=== PATIENT | male | born 1955 | race African-American/Black ===

== ENCOUNTER 2016-07-29 02:49 | Emergency (ER) | payer OTHER ==
[~2016-07-29] VITALS: Ht 180.3 cm; Wt 67.0 kg
[~2016-07-29 02:49] MED LIST: ALBU8.5H IH; BECL8.7A5 PO; CITA10TA68 PO; FAMO20 PO; MONT10TA21 PO; PRED10 PO
[2016-07-29] MEDS ORDERED: ALBUTEROL SULFATE 5 MG/ML 20 ML NEB SOLN [BULK] NEB ONE (03:45)
[2016-07-29] MEDS ORDERED: IPRATROPIUM BROMIDE 0.5 MG/2.5 ML NEB SOLUTION NEB ONE (03:45)
[2016-07-29] MEDS ORDERED: 0.9% SODIUM CHLORIDE 15 ML NEB SOLUTION NEB ONE (04:29)
[2016-07-29 05:35] VITALS: BP 127/76
== END 2016-07-29 06:06 | disposition home or self-care (01) ==
LOC: EMS 02:50
DX: R51 Headache (principal); J44.9 Chronic obstructive pulmonary disease, unspecified; J45.909 Unspecified asthma, uncomplicated; I10 Essential (primary) hypertension; F14.90 Cocaine use, unspecified, uncomplicated; F17.210 Nicotine dependence, cigarettes, uncomplicated
CPT/HCPCS: 94644; 99285; J7611

== ENCOUNTER 2016-10-05 01:01 | Emergency (ER) | payer OTHER ==
[~2016-10-05] VITALS: Ht 180.3 cm; Wt 68.0 kg
[2016-10-05] MEDS ORDERED: KETOROLAC TROMETHAMINE 60 MG/2 ML VIAL IM ONE (02:30)
[2016-10-05] MEDS ORDERED: ACETAMINOPHEN 500 MG TABLET PO ONE (02:30)
[2016-10-05 03:02] VITALS: BP 124/80
== END 2016-10-05 03:05 | disposition home or self-care (01) ==
LOC: EMS 01:03
DX: M54.5 Low back pain (principal); I10 Essential (primary) hypertension; J45.909 Unspecified asthma, uncomplicated; F17.210 Nicotine dependence, cigarettes, uncomplicated; F14.90 Cocaine use, unspecified, uncomplicated
CPT/HCPCS: 71010; 96372; 99283; 99406; J1885

== ENCOUNTER 2016-12-22 05:59 | Emergency (ER) | payer OTHER ==
[~2016-12-22] VITALS: Ht 180.3 cm; Wt 61.4 kg
[2016-12-22] MEDS ORDERED: ALBUTEROL SULFATE HFA 90 MCG/PUFF 8 GM INHALER IH ONE (06:30)
[2016-12-22 06:55] VITALS: BP 126/89
== END 2016-12-22 06:56 | disposition home or self-care (01) ==
LOC: EMS 06:01
DX: J44.9 Chronic obstructive pulmonary disease, unspecified (principal); J45.909 Unspecified asthma, uncomplicated; I10 Essential (primary) hypertension; F14.90 Cocaine use, unspecified, uncomplicated; F17.210 Nicotine dependence, cigarettes, uncomplicated
CPT/HCPCS: 94640; 99283; J3535

== ENCOUNTER 2016-12-27 03:54 | Emergency (ER) | payer OTHER ==
[~2016-12-27] VITALS: Ht 180.3 cm; Wt 61.4 kg
[~2016-12-27 03:54] MED LIST changes: -PRED10 PO
[2016-12-27] MEDS ORDERED: IPRATROPIUM BROMIDE 0.5 MG/2.5 ML NEB SOLUTION NEB ONE (06:45)
[2016-12-27] MEDS ORDERED: ALBUTEROL SULFATE 2.5 MG/0.5 ML NEB SOLUTION NEB ONE (06:45)
[2016-12-27 08:58] VITALS: BP 135/79
[2016-12-27] MEDS ORDERED: ALBUTEROL SULFATE HFA 90 MCG/PUFF 8 GM INHALER IH ONE (09:00)
== END 2016-12-27 09:20 | disposition home or self-care (01) ==
LOC: EMS 03:55
DX: J44.1 Chronic obstructive pulmonary disease with (acute) exacerbation (principal); J45.901 Unspecified asthma with (acute) exacerbation; I10 Essential (primary) hypertension; F17.210 Nicotine dependence, cigarettes, uncomplicated; F14.90 Cocaine use, unspecified, uncomplicated
CPT/HCPCS: 71020; 94640; 99284; 99406; J7613; J3535

== ENCOUNTER 2017-02-24 03:18 | Emergency (ER) | payer OTHER ==
[~2017-02-24] VITALS: Ht 180.3 cm; Wt 63.0 kg
[~2017-02-24 03:18] MED LIST changes: -ALBU8.5H IH; +ALBU8.5H8 IH; -BECL8.7A5 PO; -CITA10TA68 PO; -FAMO20 PO; -MONT10TA21 PO
[2017-02-24] MEDS ORDERED: ALBUTEROL SULFATE HFA 90 MCG/PUFF 8 GM INHALER IH ONE (03:45)
[2017-02-24 05:01] VITALS: BP 125/85
== END 2017-02-24 05:03 | disposition home or self-care (01) ==
LOC: EMS 03:19
DX: J44.9 Chronic obstructive pulmonary disease, unspecified (principal); J45.909 Unspecified asthma, uncomplicated; I10 Essential (primary) hypertension; F14.90 Cocaine use, unspecified, uncomplicated; F17.210 Nicotine dependence, cigarettes, uncomplicated
CPT/HCPCS: 94640; 99283; J3535

== ENCOUNTER 2017-03-12 03:02 | Emergency (ER) | payer OTHER ==
[~2017-03-12] VITALS: Ht 175.3 cm; Wt 73.6 kg
[2017-03-12 05:14] VITALS: BP 141/87
== END 2017-03-12 05:19 | disposition home or self-care (01) ==
LOC: EMS 03:03
DX: F41.9 Anxiety disorder, unspecified (principal); J44.9 Chronic obstructive pulmonary disease, unspecified; I10 Essential (primary) hypertension; F17.210 Nicotine dependence, cigarettes, uncomplicated; K74.60 Unspecified cirrhosis of liver
CPT/HCPCS: 99281; 99406

== ENCOUNTER 2017-04-02 23:05 | Emergency (ER) | payer OTHER ==
[~2017-04-02] VITALS: Ht 180.3 cm; Wt 68.2 kg
[2017-04-03] MEDS ORDERED: ALBUTEROL SULFATE HFA 90 MCG/PUFF 8 GM INHALER IH ONE
[2017-04-03 00:19] VITALS: BP 135/80
== END 2017-04-03 00:27 | disposition home or self-care (01) ==
LOC: EMS 23:07
DX: J44.1 Chronic obstructive pulmonary disease with (acute) exacerbation (principal); J45.901 Unspecified asthma with (acute) exacerbation; I10 Essential (primary) hypertension; F17.210 Nicotine dependence, cigarettes, uncomplicated
CPT/HCPCS: 94640; 99283; 99406; J3535

== ENCOUNTER 2017-05-31 02:46 | Emergency (ER) | payer OTHER ==
[~2017-05-31] VITALS: Ht 180.3 cm; Wt 63.5 kg
[2017-05-31 02:49] VITALS: BP 134/90
== END 2017-05-31 04:16 | disposition left against medical advice (07) ==
LOC: EMS 02:47
DX: Z53.21 Procedure and treatment not carried out due to patient leaving prior to being seen by health care provider (principal)

== ENCOUNTER 2017-06-22 04:02 | Emergency (ER) | payer OTHER ==
[~2017-06-22] VITALS: Ht 180.3 cm; Wt 63.6 kg
[2017-06-22 04:14] VITALS: BP 156/98
== END 2017-06-22 06:18 | disposition left against medical advice (07) ==
LOC: EMS 04:03
DX: F41.9 Anxiety disorder, unspecified (principal); I10 Essential (primary) hypertension; F17.210 Nicotine dependence, cigarettes, uncomplicated; Z53.21 Procedure and treatment not carried out due to patient leaving prior to being seen by health care provider

== ENCOUNTER 2017-07-11 00:31 | Emergency (ER) | payer OTHER ==
[~2017-07-11] VITALS: Ht 177.8 cm; Wt 70.5 kg
[2017-07-11 03:15] VITALS: BP 137/78
[2017-07-11] MEDS ORDERED: PredniSONE 20 MG TABLET PO ONE (04:00)
== END 2017-07-11 04:06 | disposition home or self-care (01) ==
LOC: EMS 00:33
DX: J44.9 Chronic obstructive pulmonary disease, unspecified (principal); J45.909 Unspecified asthma, uncomplicated; I10 Essential (primary) hypertension; F17.210 Nicotine dependence, cigarettes, uncomplicated
CPT/HCPCS: 99283; J7512

== ENCOUNTER 2017-07-18 14:11 | Emergency (ER) | payer OTHER ==
[~2017-07-18] VITALS: Ht 180.3 cm; Wt 68.2 kg
[2017-07-18] MEDS ORDERED: ALBUTEROL SULFATE HFA 90 MCG/PUFF 8 GM INHALER IH ONE (17:00)
[2017-07-18 18:56] VITALS: BP 131/88
== END 2017-07-18 19:04 | disposition home or self-care (01) ==
LOC: EMS 14:12
DX: J45.901 Unspecified asthma with (acute) exacerbation (principal); J44.9 Chronic obstructive pulmonary disease, unspecified; I10 Essential (primary) hypertension; F17.210 Nicotine dependence, cigarettes, uncomplicated; Z71.6 Tobacco abuse counseling
CPT/HCPCS: 94640; 99283; 99406; J3535

== ENCOUNTER 2017-11-09 03:10 | Emergency (ER) | payer OTHER ==
[~2017-11-09] VITALS: Ht 180.3 cm; Wt 65.9 kg
[2017-11-09 03:45] VITALS: BP 131/87
== END 2017-11-09 04:07 | disposition home or self-care (01) ==
LOC: EMS 03:11
DX: L02.01 Cutaneous abscess of face (principal); J45.909 Unspecified asthma, uncomplicated; J44.9 Chronic obstructive pulmonary disease, unspecified; I10 Essential (primary) hypertension; F17.210 Nicotine dependence, cigarettes, uncomplicated
CPT/HCPCS: 10060; 99283

== ENCOUNTER 2017-12-09 06:25 | Emergency (ER) | payer OTHER ==
[~2017-12-09] VITALS: Ht 180.3 cm; Wt 60.0 kg
[2017-12-09] MEDS ORDERED: ALBUTEROL SULFATE 2.5 MG/0.5 ML NEB SOLUTION NEB ONE (08:30)
[2017-12-09] MEDS ORDERED: ALBUTEROL SULFATE HFA 90 MCG/PUFF 8 GM INHALER IH ONE (08:30)
[2017-12-09] MEDS ORDERED: IPRATROPIUM BROMIDE 0.5 MG/2.5 ML NEB SOLUTION NEB ONE (08:30)
[2017-12-09 09:51] VITALS: BP 146/96
== END 2017-12-09 09:54 | disposition home or self-care (01) ==
LOC: EMS 06:27
DX: J44.9 Chronic obstructive pulmonary disease, unspecified (principal); I10 Essential (primary) hypertension; J45.909 Unspecified asthma, uncomplicated; F17.210 Nicotine dependence, cigarettes, uncomplicated; Z76.0 Encounter for issue of repeat prescription
CPT/HCPCS: 94640; 99284; 99406; J7613; J3535

== ENCOUNTER 2018-03-01 04:45 | Emergency (ER) | payer OTHER ==
[~2018-03-01] VITALS: Ht 180.3 cm; Wt 63.6 kg
[2018-03-01] MEDS ORDERED: FAMO20 PO (04:56)
[2018-03-01] MEDS ORDERED: MONT10TA21 PO (04:56)
[2018-03-01] MEDS ORDERED: PRED10 PO (04:56)
[2018-03-01] MEDS ORDERED: NAPR-1024 PO (04:56)
[2018-03-01] MEDS ORDERED: 0.9% SODIUM CHLORIDE 5 ML NEB SOLUTION NEB ONE (05:36)
[2018-03-01] MEDS: IPRATROPIUM BROMIDE 0.5 MG/2.5 ML NEB SOLUTION NEB ONE (05:39)
[2018-03-01] MEDS: ALBUTEROL SULFATE 5 MG/ML 20 ML NEB SOLN [BULK] NEB ONE (05:39)
[2018-03-01 07:01] VITALS: BP 138/91
[2018-03-01] MEDS: ALBUTEROL SULFATE HFA 90 MCG/PUFF 8 GM INHALER IH ONE (07:10)
== END 2018-03-01 07:15 | disposition home or self-care (01) ==
LOC: EMS 04:46
DX: J44.9 Chronic obstructive pulmonary disease, unspecified (principal); I10 Essential (primary) hypertension; F17.210 Nicotine dependence, cigarettes, uncomplicated
CPT/HCPCS: 94644; 99285; 99406; J7611; J3535

== ENCOUNTER 2018-03-16 06:21 | Emergency (ER) | payer OTHER ==
[~2018-03-16] VITALS: Ht 180.3 cm; Wt 68.2 kg
[~2018-03-16 06:21] MED LIST changes: -ALBU8.5H8 IH; +FAMO20 PO; +MONT10TA21 PO; +NAPR-1024 PO; +PRED10 PO
[2018-03-16] MEDS ORDERED: ALBUTEROL SULFATE 2.5 MG/0.5 ML NEB SOLUTION NEB ONE (06:45)
[2018-03-16] MEDS ORDERED: IPRATROPIUM BROMIDE 0.5 MG/2.5 ML NEB SOLUTION NEB ONE (06:45)
[2018-03-16] MEDS ORDERED: 0.9% SODIUM CHLORIDE 5 ML NEB SOLUTION NEB ONE (06:59)
[2018-03-16 07:51] VITALS: BP 130/86
[2018-03-16] MEDS ORDERED: ALBUTEROL SULFATE HFA 90 MCG/PUFF 8 GM INHALER IH ONE (08:00)
[2018-04-16] MEDS ORDERED: PredniSONE 20 MG TABLET PO ONE (02:45)
[2018-04-16] MEDS ORDERED: SODIUM CHLORIDE 0.9% 100 ML ONE (04:22)
[2018-04-16] MEDS ORDERED: IOVERSOL 350 MG/ML 100 ML VIAL ONE (04:22)
== END 2018-03-16 08:03 | disposition home or self-care (01) ==
LOC: EMS 06:21
DX: J44.9 Chronic obstructive pulmonary disease, unspecified (principal); J45.909 Unspecified asthma, uncomplicated; I10 Essential (primary) hypertension; F17.210 Nicotine dependence, cigarettes, uncomplicated
CPT/HCPCS: 94640; 99406; J3535

== ENCOUNTER 2018-04-16 02:28 | Emergency (ER) | payer OTHER ==
[~2018-04-16] VITALS: Ht 180.3 cm; Wt 63.6 kg
[2018-04-16] MEDS: PredniSONE 20 MG TABLET PO ONE (02:51)
[2018-04-16 03:26] LABS: BASOPHILS % (AUTO) 0.3 % (0.0-2.0); EOSINOPHILS % (AUTO) 1.3 % (1.0-6.0); HEMOGLOBIN 12.9 g/dL (13.5-17.5); LYMPHOCYTES # (AUTO) 1.3 K/uL (1.0-4.8); LYMPHOCYTES % (AUTO) 14.5 % (22.0-44.0); MEAN CORPUSCULAR HEMOGLOBIN 27.2 pg (26.0-34.0); MEAN CORPUSCULAR HGB CONC 32.2 G/dL (31.0-37.0); MEAN CORPUSCULAR VOLUME 85 fL (80-100); MONOCYTES # (AUTO) 0.9 K/uL (0.1-1.0); MONOCYTES % (AUTO) 10.3 % (2.0-9.0); NEUTROPHILS # (AUTO) 6.4 K/uL (1.8-7.7); NEUTROPHILS % (AUTO) 73.6 % (40.0-70.0); PLATELET COUNT (AUTO) 228 K/uL (150-450); RED BLOOD CELL COUNT(AUTO) 4.73 MIL/uL (4.50-5.90); RED CELL DISTRIBUTION WIDTH 15.6 % (11.5-14.5)
[2018-04-16 03:34] LABS: ANION GAP 2 mmol/L (8-16); CALCIUM, TOTAL 8.3 mg/dL (8.8-10.5); CARBON DIOXIDE 35 mmol/L (22-29); CHLORIDE 105 mmol/L (98-107); CREATININE 0.93 mg/dL (0.60-1.30); GLOMERULAR FILTR. RATE CALC > 60 mL/min (>60); GLUCOSE,RANDOM 105 mg/dL (70-110); POTASSIUM 4.2 mmol/L (3.5-5.1); SODIUM SERUM 142 mmol/L (136-145); UREA NITROGEN, BLOOD 20 mg/dL (7-18)
[2018-04-16 03:40] LABS: ALANINE AMINOTRANSFERASE 19 U/L (12-78); ALBUMIN 3.5 g/dL (3.4-5.0); ALKALINE PHOSPHATASE 70 U/L (46-116); ASPARTATE AMINOTRANSFERASE 15 U/L (15-37); BILIRUBIN,TOTAL 0.2 mg/dL (0.1-1.0); TOTAL PROTEIN, SERUM 6.8 g/dL (6.4-8.2)
[2018-04-16 03:45] LABS: B-TYPE NATRIURETIC PEPTIDE 9 pg/mL (0-100)
[2018-04-16] MEDS ORDERED: 0.9% SODIUM CHLORIDE 5 ML NEB SOLUTION NEB ONE (03:53)
[2018-04-16] MEDS: IPRATROPIUM BROMIDE 0.5 MG/2.5 ML NEB SOLUTION NEB ONE (04:00)
[2018-04-16] MEDS: ALBUTEROL SULFATE 2.5 MG/0.5 ML NEB SOLUTION NEB ONE (04:01)
[2018-04-16] MEDS: ALBUTEROL SULFATE HFA 90 MCG/PUFF 8 GM INHALER IH ONE (05:52)
[2018-04-16 06:00] VITALS: BP 141/83
== END 2018-04-16 06:00 | disposition home or self-care (01) ==
LOC: EMS 02:29
DX: J44.1 Chronic obstructive pulmonary disease with (acute) exacerbation (principal); I10 Essential (primary) hypertension; F17.210 Nicotine dependence, cigarettes, uncomplicated
CPT/HCPCS: 36415; 71045; 71275; 80053; 83880; 85025; 94640; 99284; 99406; J7512; J3535

== ENCOUNTER 2018-04-25 03:41 | Emergency (ER) | payer OTHER ==
[~2018-04-25] VITALS: Ht 177.8 cm; Wt 59.1 kg
[2018-04-25 06:13] VITALS: BP 136/88
[2018-04-25] MEDS ORDERED: ALBUTEROL SULFATE HFA 90 MCG/PUFF 8 GM INHALER IH ONE (06:30)
[2018-04-25] MEDS ORDERED: ALBUTEROL SULFATE 2.5 MG/0.5 ML NEB SOLUTION NEB ONE (06:30)
[2018-04-25] MEDS ORDERED: IPRATROPIUM BROMIDE 0.5 MG/2.5 ML NEB SOLUTION NEB ONE (06:30)
== END 2018-04-25 07:05 | disposition home or self-care (01) ==
LOC: EMS 03:43
DX: J45.901 Unspecified asthma with (acute) exacerbation (principal); I10 Essential (primary) hypertension; F17.210 Nicotine dependence, cigarettes, uncomplicated; Z79.899 Other long term (current) drug therapy
CPT/HCPCS: 94640; J3535

== ENCOUNTER 2018-05-09 12:07 | Emergency (ER) | payer OTHER ==
[~2018-05-09] VITALS: Ht 177.8 cm; Wt 70.5 kg
[2018-05-09] MEDS ORDERED: ALBUTEROL SULFATE 2.5 MG/0.5 ML NEB SOLUTION NEB ONE (12:15)
[2018-05-09] MEDS ORDERED: IPRATROPIUM BROMIDE 0.5 MG/2.5 ML NEB SOLUTION NEB ONE ×2 (12:15→13:00)
[2018-05-09] MEDS ORDERED: ALBUTEROL SULFATE 5 MG/ML 20 ML NEB SOLN [BULK] NEB ONE (13:00)
[2018-05-09] MEDS ORDERED: 0.9% SODIUM CHLORIDE 10 ML SYRINGE IVP PRN (13:45)
[2018-05-09 15:58] LABS: SODIUM SERUM 140 mmol/L (136-145)
[2018-05-09 15:59] LABS: ALANINE AMINOTRANSFERASE 26 U/L (12-78); ALKALINE PHOSPHATASE 64 U/L (46-116); ANION GAP 3 mmol/L (8-16); ASPARTATE AMINOTRANSFERASE 13 U/L (15-37); BILIRUBIN,TOTAL 0.4 mg/dL (0.1-1.0); CALCIUM, TOTAL 8.6 mg/dL (8.8-10.5); CARBON DIOXIDE 35 mmol/L (22-29); CHLORIDE 102 mmol/L (98-107); CREATINE KINASE, TOTAL ONLY 177 U/L (39-308); CREATININE 0.93 mg/dL (0.60-1.30); GLOMERULAR FILTR. RATE CALC > 60 mL/min (>60); GLUCOSE,RANDOM 91 mg/dL (70-110); LACTIC ACID 1.1 mmol/L (0.4-2.0); POTASSIUM 4.7 mmol/L (3.5-5.1); UREA NITROGEN, BLOOD 15 mg/dL (7-18)
[2018-05-09 16:00] LABS: ALBUMIN 3.8 g/dL (3.4-5.0); B-TYPE NATRIURETIC PEPTIDE 25 pg/mL (0-100); TOTAL PROTEIN, SERUM 7.3 g/dL (6.4-8.2)
[2018-05-09] MEDS ORDERED: AZITHROMYCIN 500 MG/NS 250 ML IV ONE (16:00)
[2018-05-09] MEDS ORDERED: CefTRIAXone 1 GM/DEXTROSE 50 ML IV ONE (16:00)
[2018-05-09 17:24] LABS: INFLUENZA TYPE A NEGATIVE FOR TYPE A (NEGATIVE); INFLUENZA TYPE B NEGATIVE FOR TYPE B (NEGATIVE)
[2018-05-09 17:48] LABS: HEMOGLOBIN 13.6 g/dL (13.5-17.5); RED BLOOD CELL COUNT(AUTO) 4.98 MIL/uL (4.50-5.90)
[2018-05-09 17:49] LABS: BASOPHILS % (AUTO) 0.1 % (0.0-2.0); EOSINOPHILS % (AUTO) 0.4 % (1.0-6.0); HEMATOCRIT 42.4 % (41-53); LYMPHOCYTES # (AUTO) 0.5 K/uL (1.0-4.8); LYMPHOCYTES % (AUTO) 6.2 % (22.0-44.0); MEAN CORPUSCULAR HEMOGLOBIN 27.4 pg (26.0-34.0); MEAN CORPUSCULAR HGB CONC 32.2 G/dL (31.0-37.0); MEAN CORPUSCULAR VOLUME 85 fL (80-100); MONOCYTES # (AUTO) 0.3 K/uL (0.1-1.0); MONOCYTES % (AUTO) 3.6 % (2.0-9.0); NEUTROPHILS # (AUTO) 7.2 K/uL (1.8-7.7); NEUTROPHILS % (AUTO) 89.7 % (40.0-70.0); PLATELET COUNT (AUTO) 222 K/uL (150-450); RED CELL DISTRIBUTION WIDTH 16.1 % (11.5-14.5)
[2018-05-09 17:51] VITALS: BP 98/78
== END 2018-05-09 18:07 | disposition home or self-care (01) ==
LOC: EMS 12:07
DX: J44.9 Chronic obstructive pulmonary disease, unspecified (principal); J18.9 Pneumonia, unspecified organism; I10 Essential (primary) hypertension; F17.210 Nicotine dependence, cigarettes, uncomplicated
CPT/HCPCS: 36415; 71045; 80053; 82550; 83605; 83880; 84484; 85025; 87040; 87804; 93005; 94640; 94644; 96365; 96368; 99285; J0456; J0696

== ENCOUNTER 2018-05-12 01:23 | Emergency (ER) | payer OTHER ==
[~2018-05-12] VITALS: Ht 180.3 cm; Wt 68.4 kg
[2018-05-12 01:35] VITALS: BP 156/100
[2018-05-12] MEDS ORDERED: BUPR100SR PO (01:42)
[2018-05-12] MEDS ORDERED: DOXY50 PO (01:44)
== END 2018-05-12 03:00 | disposition home or self-care (01) ==
LOC: EMS 01:24
DX: J44.1 Chronic obstructive pulmonary disease with (acute) exacerbation (principal); J98.01 Acute bronchospasm; I10 Essential (primary) hypertension; F17.210 Nicotine dependence, cigarettes, uncomplicated

== ENCOUNTER 2019-05-26 14:05 | Emergency (ER) | payer OTHER ==
[~2019-05-26] VITALS: Ht 180.3 cm; Wt 81.8 kg
[~2019-05-26 14:05] MED LIST changes: +BUPR100SR PO; +DOXY50 PO
[2019-05-26] MEDS ORDERED: IPRATROPIUM BROMIDE 0.5 MG/2.5 ML NEB SOLUTION NEB ONE (22:30)
[2019-05-26] MEDS ORDERED: ALBUTEROL SULFATE 2.5 MG/0.5 ML NEB SOLUTION NEB ONE (22:30)
[2019-05-26] MEDS ORDERED: AZITHROMYCIN 250 MG TABLET PO ONE (22:30)
[2019-05-26] MEDS ORDERED: PredniSONE 20 MG TABLET PO ONE (22:30)
[2019-05-26 22:57] LABS: BASOPHILS % (AUTO) 0.6 % (0.0-2.0); EOSINOPHILS % (AUTO) 2.9 % (1.0-6.0); HEMATOCRIT 39.7 % (41-53); LYMPHOCYTES # (AUTO) 0.7 K/uL (1.0-4.8); LYMPHOCYTES % (AUTO) 13.8 % (22.0-44.0); MEAN CORPUSCULAR HEMOGLOBIN 27.2 pg (26.0-34.0); MEAN CORPUSCULAR HGB CONC 32.8 G/dL (31.0-37.0); MEAN CORPUSCULAR VOLUME 83 fL (80-100); MONOCYTES # (AUTO) 0.7 K/uL (0.1-1.0); MONOCYTES % (AUTO) 12.6 % (2.0-9.0); NEUTROPHILS # (AUTO) 3.8 K/uL (1.8-7.7); NEUTROPHILS % (AUTO) 70.1 % (40.0-70.0); PLATELET COUNT (AUTO) 260 K/uL (150-450); RED BLOOD CELL COUNT(AUTO) 4.79 MIL/uL (4.50-5.90); RED CELL DISTRIBUTION WIDTH 14.8 % (11.5-14.5)
[2019-05-26 23:10] LABS: ANION GAP 4 mmol/L (8-16); CALCIUM, TOTAL 8.5 mg/dL (8.8-10.5); CARBON DIOXIDE 32 mmol/L (22-29); CHLORIDE 105 mmol/L (98-107); CREATININE 0.85 mg/dL (0.60-1.30); GLOMERULAR FILTR. RATE CALC > 60 mL/min (>60); GLUCOSE,RANDOM 79 mg/dL (70-110); POTASSIUM 4.3 mmol/L (3.5-5.1); SODIUM SERUM 141 mmol/L (136-145); UREA NITROGEN, BLOOD 11 mg/dL (7-18)
[2019-05-26 23:16] LABS: ALANINE AMINOTRANSFERASE 19 U/L (12-78); ALBUMIN 3.8 g/dL (3.4-5.0); ALKALINE PHOSPHATASE 69 U/L (46-116); ASPARTATE AMINOTRANSFERASE 19 U/L (15-37); BILIRUBIN,TOTAL 0.3 mg/dL (0.1-1.0)
[2019-05-26 23:54] VITALS: BP 135/96
== END 2019-05-27 00:23 | disposition home or self-care (01) ==
LOC: EMS 14:05
DX: J44.9 Chronic obstructive pulmonary disease, unspecified (principal); J18.9 Pneumonia, unspecified organism; I10 Essential (primary) hypertension; F17.210 Nicotine dependence, cigarettes, uncomplicated; Z79.899 Other long term (current) drug therapy
CPT/HCPCS: 36415; 71046; 80053; 85025; 94640; 99284; J7512

== ENCOUNTER 2019-07-01 06:05 | Day surgery (SDC) | payer OTHER ==
[~2019-07-01] VITALS: Ht 180.3 cm; Wt 63.6 kg
[~2019-07-01 06:05] MED LIST changes: +SODIUM CHLORIDE 0.9% 1,000 ML ONE
[2019-07-01] MEDS ORDERED: LIDOCAINE 2% 30 ML JELLY TP ONE (06:06)
[2019-07-01] MEDS ORDERED: ALBUTEROL SULFATE 2.5 MG/0.5 ML NEB SOLUTION NEB ONE (06:06)
[2019-07-01] MEDS ORDERED: LIDOCAINE 4% 50 ML SOLUTION TP ONE (06:06)
[2019-07-01] MEDS ORDERED: BENZOCAINE 20% 50 MCG/SPRAY 57 GM TP ONE (06:06)
[2019-07-01] MEDS ORDERED: SODIUM CHLORIDE 0.9% 1,000 ML IV ONE (06:30)
[2019-07-01] MEDS ORDERED: MIDAZOLAM HCL 2 MG/2 ML VIAL ONE (07:21)
[2019-07-01] MEDS ORDERED: FentaNYL CITRATE-PF 100 MCG/2 ML VIAL ONE (07:21)
[2019-07-01] MEDS ORDERED: MethylPREDNISolone SOD SUCC 125 MG/2 ML VIAL IVP ONE (08:45)
[2019-07-01] MEDS ORDERED: MethylPREDNISolone SOD SUCC 125 MG/2 ML VIAL ONE (08:54)
[2019-07-01] MEDS ORDERED: OXYGEN THERAPY IH SCH (20:00)
== END 2019-07-01 10:10 | disposition home or self-care (01) ==
LOC: SURGERY 06:05
PROVIDERS: ATTEND Internal Medicine Critical Care Medicine
DX: R05 Cough (principal); R91.1 Solitary pulmonary nodule; J34.89 Other specified disorders of nose and nasal sinuses; J98.8 Other specified respiratory disorders; J38.4 Edema of larynx; B37.0 Candidal stomatitis; J44.9 Chronic obstructive pulmonary disease, unspecified; F17.210 Nicotine dependence, cigarettes, uncomplicated; Z79.899 Other long term (current) drug therapy
CPT/HCPCS: 31623; 31624; 71045; 87070; 87101; 87206; 87220; J2250; J2930; J3010; J7030; 87015; 87205; 88108; 88312

== ENCOUNTER 2019-08-01 02:17 | Emergency (ER) | payer OTHER ==
[~2019-08-01] VITALS: Ht 180.3 cm; Wt 63.6 kg
[~2019-08-01 02:17] MED LIST changes: -SODIUM CHLORIDE 0.9% 1,000 ML ONE
[2019-08-01 03:32] LABS: BASOPHILS % (AUTO) 0.5 % (0.0-2.0); EOSINOPHILS % (AUTO) 2.2 % (1.0-6.0); HEMATOCRIT 38.8 % (41-53); HEMOGLOBIN 12.6 g/dL (13.5-17.5); LYMPHOCYTES # (AUTO) 0.8 K/uL (1.0-4.8); LYMPHOCYTES % (AUTO) 13.1 % (22.0-44.0); MEAN CORPUSCULAR HEMOGLOBIN 26.7 pg (26.0-34.0); MEAN CORPUSCULAR HGB CONC 32.4 G/dL (31.0-37.0); MEAN CORPUSCULAR VOLUME 83 fL (80-100); MONOCYTES # (AUTO) 0.7 K/uL (0.1-1.0); MONOCYTES % (AUTO) 12.7 % (2.0-9.0); NEUTROPHILS # (AUTO) 4.1 K/uL (1.8-7.7); NEUTROPHILS % (AUTO) 71.5 % (40.0-70.0); PLATELET COUNT (AUTO) 235 K/uL (150-450); RED CELL DISTRIBUTION WIDTH 15.2 % (11.5-14.5)
[2019-08-01 03:44] LABS: ANION GAP 7 mmol/L (8-16); CALCIUM, TOTAL 9.2 mg/dL (8.8-10.5); CARBON DIOXIDE 30 mmol/L (22-29); CHLORIDE 103 mmol/L (98-107); CREATININE 0.77 mg/dL (0.60-1.30); GLOMERULAR FILTR. RATE CALC > 60 mL/min (>60); GLUCOSE,RANDOM 108 mg/dL (70-110); POTASSIUM 3.6 mmol/L (3.5-5.1); SODIUM SERUM 140 mmol/L (136-145); UREA NITROGEN, BLOOD 11 mg/dL (7-18)
[2019-08-01 03:50] LABS: ALANINE AMINOTRANSFERASE 18 U/L (12-78); ALBUMIN 3.7 g/dL (3.4-5.0); ALKALINE PHOSPHATASE 70 U/L (46-116); ASPARTATE AMINOTRANSFERASE 13 U/L (15-37); BILIRUBIN,TOTAL 0.4 mg/dL (0.1-1.0); TOTAL PROTEIN, SERUM 7.2 g/dL (6.4-8.2)
[2019-08-01 03:55] LABS: B-TYPE NATRIURETIC PEPTIDE 15 pg/mL (0-100)
[2019-08-01] MEDS ORDERED: ALBUTEROL SULFATE HFA 90 MCG/PUFF 8 GM INHALER IH ONE (07:15)
[2019-08-01 08:21] VITALS: BP 127/83
== END 2019-08-01 08:27 | disposition home or self-care (01) ==
LOC: EMS 02:18
DX: J44.9 Chronic obstructive pulmonary disease, unspecified (principal); I10 Essential (primary) hypertension; F17.210 Nicotine dependence, cigarettes, uncomplicated
CPT/HCPCS: 93005; 94640; J3535

== ENCOUNTER 2019-08-11 02:00 | Emergency (ER) | payer OTHER ==
[~2019-08-11] VITALS: Ht 180.3 cm; Wt 63.6 kg
[2019-08-11 03:39] LABS: BASOPHILS % (AUTO) 0.5 % (0.0-2.0); HEMATOCRIT 40.1 % (41-53); HEMOGLOBIN 12.8 g/dL (13.5-17.5); LYMPHOCYTES # (AUTO) 0.6 K/uL (1.0-4.8); LYMPHOCYTES % (AUTO) 10.8 % (22.0-44.0); MEAN CORPUSCULAR HEMOGLOBIN 26.4 pg (26.0-34.0); MEAN CORPUSCULAR HGB CONC 31.9 G/dL (31.0-37.0); MEAN CORPUSCULAR VOLUME 83 fL (80-100); MONOCYTES # (AUTO) 0.5 K/uL (0.1-1.0); MONOCYTES % (AUTO) 9.2 % (2.0-9.0); NEUTROPHILS # (AUTO) 4.5 K/uL (1.8-7.7); NEUTROPHILS % (AUTO) 77.5 % (40.0-70.0); PLATELET COUNT (AUTO) 273 K/uL (150-450); RED BLOOD CELL COUNT(AUTO) 4.84 MIL/uL (4.50-5.90); RED CELL DISTRIBUTION WIDTH 15.1 % (11.5-14.5)
[2019-08-11 03:49] LABS: ANION GAP 9 mmol/L (8-16); CALCIUM, TOTAL 8.9 mg/dL (8.8-10.5); CARBON DIOXIDE 28 mmol/L (22-29); CHLORIDE 105 mmol/L (98-107); CREATININE 0.87 mg/dL (0.60-1.30); GLOMERULAR FILTR. RATE CALC > 60 mL/min (>60); GLUCOSE,RANDOM 88 mg/dL (70-110); POTASSIUM 4.1 mmol/L (3.5-5.1); SODIUM SERUM 142 mmol/L (136-145); UREA NITROGEN, BLOOD 13 mg/dL (7-18)
[2019-08-11 03:56] LABS: ALANINE AMINOTRANSFERASE 22 U/L (12-78); ALBUMIN 3.7 g/dL (3.4-5.0); ALKALINE PHOSPHATASE 69 U/L (46-116); ASPARTATE AMINOTRANSFERASE 18 U/L (15-37); BILIRUBIN,TOTAL 0.2 mg/dL (0.1-1.0); TOTAL PROTEIN, SERUM 7.2 g/dL (6.4-8.2)
[2019-08-11 04:06] LABS: B-TYPE NATRIURETIC PEPTIDE 24 pg/mL (0-100)
[2019-08-11 06:37] VITALS: BP 134/85
== END 2019-08-11 06:41 | disposition home or self-care (01) ==
LOC: EMS 02:01
DX: J44.1 Chronic obstructive pulmonary disease with (acute) exacerbation (principal); F10.10 Alcohol abuse, uncomplicated; I10 Essential (primary) hypertension; K74.60 Unspecified cirrhosis of liver; F17.210 Nicotine dependence, cigarettes, uncomplicated; Z79.899 Other long term (current) drug therapy; Z98.890 Other specified postprocedural states
CPT/HCPCS: 93005; 99406

== ENCOUNTER 2019-08-12 14:54 | Emergency (ER) | payer OTHER ==
[~2019-08-12] VITALS: Ht 180.3 cm; Wt 63.6 kg
[2019-08-12] MEDS ORDERED: ALBUTEROL SULFATE 5 MG/ML 20 ML NEB SOLN [BULK] NEB ONE (16:30)
[2019-08-12] MEDS ORDERED: IPRATROPIUM BROMIDE 0.5 MG/2.5 ML NEB SOLUTION NEB ONE (16:30)
[2019-08-12] MEDS ORDERED: ALBUTEROL SULFATE HFA 90 MCG/PUFF 8 GM INHALER IH ONE (17:15)
[2019-08-12 18:14] VITALS: BP 131/81
[2019-08-15] MEDS ORDERED: MethylPREDNISolone SOD SUCC 125 MG/2 ML VIAL IVP ONE (01:00)
== END 2019-08-12 18:20 | disposition home or self-care (01) ==
LOC: EMS 14:59
DX: J44.1 Chronic obstructive pulmonary disease with (acute) exacerbation (principal); I10 Essential (primary) hypertension; K74.60 Unspecified cirrhosis of liver; F17.210 Nicotine dependence, cigarettes, uncomplicated; Z79.899 Other long term (current) drug therapy
CPT/HCPCS: 94640; 94644; J3535

== ENCOUNTER 2019-08-15 00:07 | Emergency (ER) | payer OTHER ==
[~2019-08-15] VITALS: Ht 180.3 cm; Wt 63.6 kg
[~2019-08-15 00:07] MED LIST changes: -DOXY50 PO
[2019-08-15] MEDS ORDERED: ALBU8HFA IH (00:36)
[2019-08-15] MEDS ORDERED: PredniSONE 20 MG TABLET PO ONE (02:00)
[2019-08-15 02:35] VITALS: BP 154/85
[2019-08-15 03:09] LABS: AMPHET/METH SCREEN,URINE NEGATIVE (NEGATIVE); BARBITURATE SCREEN, URINE NEGATIVE (NEGATIVE); BENZODIAZEPINES SCREEN,URINE NEGATIVE (NEGATIVE); CANNABINOID SCREEN,URINE NEGATIVE (NEGATIVE); COCAINE SCREEN,URINE NEGATIVE (NEGATIVE); METHADONE SCREEN, URINE NEGATIVE (NEGATIVE); OPIATE SCREEN,URINE NEGATIVE (NEGATIVE)
[2019-08-15 03:10] LABS: PHENCYCLIDINE SCREEN,URINE NEGATIVE (NEGATIVE)
[2019-08-15 03:15] LABS: BASOPHILS % (AUTO) 0.5 % (0.0-2.0); HEMATOCRIT 38.3 % (41-53); HEMOGLOBIN 12.4 g/dL (13.5-17.5); LYMPHOCYTES % (AUTO) 15.3 % (22.0-44.0); MEAN CORPUSCULAR HEMOGLOBIN 26.6 pg (26.0-34.0); MEAN CORPUSCULAR HGB CONC 32.2 G/dL (31.0-37.0); MEAN CORPUSCULAR VOLUME 82 fL (80-100); MONOCYTES % (AUTO) 15.1 % (2.0-9.0); NEUTROPHILS # (AUTO) 3.8 K/uL (1.8-7.7); NEUTROPHILS % (AUTO) 66.1 % (40.0-70.0); PLATELET COUNT (AUTO) 250 K/uL (150-450); RED BLOOD CELL COUNT(AUTO) 4.65 MIL/uL (4.50-5.90); RED CELL DISTRIBUTION WIDTH 15.4 % (11.5-14.5)
[2019-08-15 03:16] LABS: LYMPHOCYTES # (AUTO) 0.9 K/uL (1.0-4.8); MONOCYTES # (AUTO) 0.9 K/uL (0.1-1.0)
[2019-08-15 03:18] LABS: ANION GAP 5 mmol/L (8-16); CARBON DIOXIDE 32 mmol/L (22-29); CHLORIDE 104 mmol/L (98-107); GLUCOSE,RANDOM 98 mg/dL (70-110); POTASSIUM 4.2 mmol/L (3.5-5.1); SODIUM SERUM 141 mmol/L (136-145)
[2019-08-15 03:20] LABS: CALCIUM, TOTAL 8.9 mg/dL (8.8-10.5); CREATININE 0.89 mg/dL (0.60-1.30); GLOMERULAR FILTR. RATE CALC > 60 mL/min (>60); UREA NITROGEN, BLOOD 13 mg/dL (7-18)
[2019-08-15 03:21] LABS: CREATINE KINASE, TOTAL ONLY 203 U/L (39-308)
[2019-08-15 03:33] LABS: ALANINE AMINOTRANSFERASE 26 U/L (12-78); ALBUMIN 3.7 g/dL (3.4-5.0); ALKALINE PHOSPHATASE 85 U/L (46-116); ASPARTATE AMINOTRANSFERASE 17 U/L (15-37); BILIRUBIN,TOTAL 0.3 mg/dL (0.1-1.0); TOTAL PROTEIN, SERUM 7.1 g/dL (6.4-8.2)
[2019-08-15] MEDS ORDERED: ALBUTEROL SULFATE HFA 90 MCG/PUFF 8 GM INHALER IH ONE (04:40)
== END 2019-08-15 04:09 | disposition home or self-care (01) ==
LOC: EMS 00:08
DX: J44.9 Chronic obstructive pulmonary disease, unspecified (principal); I10 Essential (primary) hypertension; F17.290 Nicotine dependence, other tobacco product, uncomplicated; Z79.899 Other long term (current) drug therapy
CPT/HCPCS: 36415; 80053; 80307; 82550; 84484; 85025; 93005; 99284; 99406; J7512; J3535

== ENCOUNTER 2019-09-17 03:20 | Emergency (ER) | payer OTHER ==
[~2019-09-17] VITALS: Ht 180.3 cm; Wt 63.6 kg
[~2019-09-17 03:20] MED LIST changes: +ALBU8HFA IH
[2019-09-17] MEDS ORDERED: ALBUTEROL SULFATE HFA 90 MCG/PUFF 8 GM INHALER IH ONE (06:00)
[2019-09-17] MEDS ORDERED: IPRATROPIUM BROMIDE HFA 17 MCG/PUFF 12.9 GM INHALER IH ONE (06:00)
[2019-09-17 06:34] VITALS: BP 135/88
== END 2019-09-17 06:46 | disposition home or self-care (01) ==
LOC: EMS 03:20
DX: R06.02 Shortness of breath (principal); J44.9 Chronic obstructive pulmonary disease, unspecified; F17.210 Nicotine dependence, cigarettes, uncomplicated; I10 Essential (primary) hypertension; Z79.899 Other long term (current) drug therapy
CPT/HCPCS: 94640; J3535

== ENCOUNTER 2019-12-02 09:27 | Emergency (ER) | payer OTHER ==
[~2019-12-02] VITALS: Ht 180.3 cm; Wt 64.1 kg
[2019-12-02] MEDS ORDERED: PredniSONE 20 MG TABLET PO ONE (11:00)
[2019-12-02] MEDS ORDERED: IPRATROPIUM BROMIDE 0.5 MG/2.5 ML NEB SOLUTION NEB ONE (11:00)
[2019-12-02] MEDS ORDERED: ALBUTEROL SULFATE 2.5 MG/0.5 ML NEB SOLUTION NEB ONE (11:00)
[2019-12-02] MEDS ORDERED: ALBUTEROL SULFATE HFA 90 MCG/PUFF 8 GM INHALER IH ONE (11:15)
[2019-12-02 11:30] LABS: BASOPHILS % (AUTO) 0.7 % (0.0-2.0); EOSINOPHILS % (AUTO) 4.7 % (1.0-6.0); HEMOGLOBIN 13.1 g/dL (13.5-17.5); LYMPHOCYTES # (AUTO) 0.7 K/uL (1.0-4.8); LYMPHOCYTES % (AUTO) 14.8 % (22.0-44.0); MEAN CORPUSCULAR HEMOGLOBIN 26.9 pg (26.0-34.0); MEAN CORPUSCULAR HGB CONC 32.6 G/dL (31.0-37.0); MEAN CORPUSCULAR VOLUME 82 fL (80-100); MONOCYTES # (AUTO) 0.8 K/uL (0.1-1.0); MONOCYTES % (AUTO) 16.9 % (2.0-9.0); NEUTROPHILS # (AUTO) 3.1 K/uL (1.8-7.7); NEUTROPHILS % (AUTO) 62.9 % (40.0-70.0); PLATELET COUNT (AUTO) 247 K/uL (150-450); RED BLOOD CELL COUNT(AUTO) 4.86 MIL/uL (4.50-5.90)
[2019-12-02 12:21] LABS: APPEARANCE,URINE CLEAR (CLEAR); BILIRUBIN,URINE NEGATIVE (NEGATIVE); GLUCOSE, URINE (UA) NEGATIVE (NEGATIVE); KETONES,URINE NEGATIVE (NEGATIVE); LEUKOCYTE ESTERASE ,URINE NEGATIVE (NEGATIVE); NITRATE,URINE NEGATIVE (NEGATIVE); OCCULT BLOOD,URINE NEGATIVE (NEGATIVE); PROTEIN,URINE NEGATIVE (NEGATIVE); UROBILINOGEN,URINE 0.2 mg/dL (<=1.0)
[2019-12-02 12:42] LABS: ANION GAP 6 mmol/L (8-16); CALCIUM, TOTAL 7.5 mg/dL (8.8-10.5); CARBON DIOXIDE 30 mmol/L (22-29); CHLORIDE 103 mmol/L (98-107); CREATININE 0.74 mg/dL (0.60-1.30); GLOMERULAR FILTR. RATE CALC > 60 mL/min (>60); GLUCOSE,RANDOM 95 mg/dL (70-110); POTASSIUM 4.1 mmol/L (3.5-5.1); SODIUM SERUM 139 mmol/L (136-145); UREA NITROGEN, BLOOD 12 mg/dL (7-18)
[2019-12-02 13:06] LABS: ALANINE AMINOTRANSFERASE 24 U/L (12-78); ALKALINE PHOSPHATASE 73 U/L (46-116); ASPARTATE AMINOTRANSFERASE 23 U/L (15-37); BILIRUBIN,TOTAL 0.4 mg/dL (0.1-1.0); CREATINE KINASE, TOTAL ONLY 145 U/L (39-308); TOTAL PROTEIN, SERUM 7.2 g/dL (6.4-8.2)
[2019-12-02 13:13] VITALS: BP 131/95
== END 2019-12-02 13:25 | disposition home or self-care (01) ==
LOC: EMS 09:29
DX: J44.9 Chronic obstructive pulmonary disease, unspecified (principal); I10 Essential (primary) hypertension; F17.210 Nicotine dependence, cigarettes, uncomplicated; Z20.828 Contact with and (suspected) exposure to other viral communicable diseases
CPT/HCPCS: 36415; 71045; 80053; 81003; 82550; 83880; 84484; 85025; 93005; 94640; 99285; J7512; U0003; J3535; J7613

== ENCOUNTER 2019-12-28 10:21 | Emergency (ER) | payer OTHER ==
[~2019-12-28] VITALS: Ht 180.3 cm; Wt 63.6 kg
[2019-12-28] MEDS ORDERED: ALBUTEROL SULFATE 5 MG/ML 20 ML NEB SOLN [BULK] NEB ONE (10:45)
[2019-12-28] MEDS ORDERED: PredniSONE 20 MG TABLET PO ONE (10:45)
[2019-12-28] MEDS ORDERED: IPRATROPIUM BROMIDE 0.5 MG/2.5 ML NEB SOLUTION NEB ONE (10:45)
[2019-12-28 10:54] LABS: BASOPHILS % (AUTO) 0.7 % (0.0-2.0); HEMATOCRIT 40.6 % (41-53); HEMOGLOBIN 13.6 g/dL (13.5-17.5); LYMPHOCYTES # (AUTO) 0.7 K/uL (1.0-4.8); LYMPHOCYTES % (AUTO) 12.4 % (22.0-44.0); MEAN CORPUSCULAR HEMOGLOBIN 27.6 pg (26.0-34.0); MEAN CORPUSCULAR HGB CONC 33.4 G/dL (31.0-37.0); MEAN CORPUSCULAR VOLUME 83 fL (80-100); MONOCYTES # (AUTO) 0.6 K/uL (0.1-1.0); MONOCYTES % (AUTO) 10.6 % (2.0-9.0); NEUTROPHILS # (AUTO) 4.4 K/uL (1.8-7.7); NEUTROPHILS % (AUTO) 73.3 % (40.0-70.0); PLATELET COUNT (AUTO) 264 K/uL (150-450); RED BLOOD CELL COUNT(AUTO) 4.92 MIL/uL (4.50-5.90)
[2019-12-28 11:03] LABS: ANION GAP 9 mmol/L (8-16); CARBON DIOXIDE 28 mmol/L (22-29); CHLORIDE 102 mmol/L (98-107); CREATININE 0.85 mg/dL (0.60-1.30); GLOMERULAR FILTR. RATE CALC > 60 mL/min (>60); GLUCOSE,RANDOM 82 mg/dL (70-110); SODIUM SERUM 139 mmol/L (136-145); UREA NITROGEN, BLOOD 8 mg/dL (7-18)
[2019-12-28 11:11] LABS: ALANINE AMINOTRANSFERASE 26 U/L (12-78); ALKALINE PHOSPHATASE 75 U/L (46-116); ASPARTATE AMINOTRANSFERASE 24 U/L (15-37); BILIRUBIN,TOTAL 0.4 mg/dL (0.1-1.0); TOTAL PROTEIN, SERUM 7.8 g/dL (6.4-8.2)
[2019-12-28 13:29] VITALS: BP 121/61
== END 2019-12-28 13:30 | disposition home or self-care (01) ==
LOC: EMS 10:21
DX: J44.9 Chronic obstructive pulmonary disease, unspecified (principal); I10 Essential (primary) hypertension; F17.210 Nicotine dependence, cigarettes, uncomplicated
CPT/HCPCS: 36415; 71045; 80053; 85025; 93005; 94640; 99285; J7512; J7611

== ENCOUNTER 2020-01-11 03:35 | Emergency (ER) | payer OTHER ==
[~2020-01-11] VITALS: Ht 180.3 cm; Wt 63.6 kg
[2020-01-11] MEDS ORDERED: IPRATROPIUM BROMIDE HFA 17 MCG/PUFF 12.9 GM INHALER IH ONE (04:15)
[2020-01-11] MEDS ORDERED: ALBUTEROL SULFATE HFA 90 MCG/PUFF 8 GM INHALER IH ONE ×2 (04:15→06:30)
[2020-01-11 04:55] LABS: BASOPHILS % (AUTO) 0.3 % (0.0-2.0); EOSINOPHILS % (AUTO) 0.2 % (1.0-6.0); HEMATOCRIT 37.9 % (41-53); HEMOGLOBIN 12.5 g/dL (13.5-17.5); LYMPHOCYTES # (AUTO) 0.4 K/uL (1.0-4.8); LYMPHOCYTES % (AUTO) 6.9 % (22.0-44.0); MEAN CORPUSCULAR HEMOGLOBIN 27.3 pg (26.0-34.0); MEAN CORPUSCULAR HGB CONC 32.9 G/dL (31.0-37.0); MEAN CORPUSCULAR VOLUME 83 fL (80-100); MONOCYTES # (AUTO) 0.4 K/uL (0.1-1.0); MONOCYTES % (AUTO) 6.4 % (2.0-9.0); NEUTROPHILS # (AUTO) 5.6 K/uL (1.8-7.7); PLATELET COUNT (AUTO) 279 K/uL (150-450); RED BLOOD CELL COUNT(AUTO) 4.56 MIL/uL (4.50-5.90); RED CELL DISTRIBUTION WIDTH 15.4 % (11.5-14.5)
[2020-01-11 05:05] LABS: ANION GAP 9 mmol/L (8-16); CALCIUM, TOTAL 9.2 mg/dL (8.8-10.5); CARBON DIOXIDE 28 mmol/L (22-29); CHLORIDE 101 mmol/L (98-107); CREATININE 1.07 mg/dL (0.60-1.30); GLOMERULAR FILTR. RATE CALC > 60 mL/min (>60); GLUCOSE,RANDOM 156 mg/dL (70-110); POTASSIUM 4.3 mmol/L (3.5-5.1); SODIUM SERUM 138 mmol/L (136-145); UREA NITROGEN, BLOOD 24 mg/dL (7-18)
[2020-01-11 05:11] LABS: ALANINE AMINOTRANSFERASE 21 U/L (12-78); ALBUMIN 3.7 g/dL (3.4-5.0); ALKALINE PHOSPHATASE 56 U/L (46-116); ASPARTATE AMINOTRANSFERASE 13 U/L (15-37); BILIRUBIN,TOTAL 0.3 mg/dL (0.1-1.0)
[2020-01-11 05:22] LABS: NEUTROPHILS % (AUTO) 86.2 % (40.0-70.0)
[2020-01-11 05:43] LABS: B-TYPE NATRIURETIC PEPTIDE 15 pg/mL (0-100)
[2020-01-11] MEDS ORDERED: ALBUTEROL SULFATE 5 MG/ML 20 ML NEB SOLN [BULK] NEB ONE (06:30)
[2020-01-11] MEDS ORDERED: IPRATROPIUM BROMIDE 0.5 MG/2.5 ML NEB SOLUTION NEB ONE (06:30)
[2020-01-11] MEDS ORDERED: MethylPREDNISolone SOD SUCC 125 MG/2 ML VIAL IVP ONE (06:30)
[2020-01-11 08:51] VITALS: BP 130/77
== END 2020-01-11 09:47 | disposition home or self-care (01) ==
LOC: EMS 03:35
DX: J44.1 Chronic obstructive pulmonary disease with (acute) exacerbation (principal); I10 Essential (primary) hypertension; F17.210 Nicotine dependence, cigarettes, uncomplicated
CPT/HCPCS: 36415; 71045; 80053; 83880; 84484; 85025; 93005; 94640; 94644; 96374; 99285; J2930; J3535

== ENCOUNTER 2020-02-26 05:09 | Emergency (ER) | payer OTHER ==
[~2020-02-26] VITALS: Ht 180.3 cm; Wt 56.9 kg
[~2020-02-26 05:09] MED LIST changes: +MONT-35 PO; -MONT10TA21 PO
[2020-02-26 05:48] LABS: BASOPHILS % (AUTO) 0.2 % (0.0-2.0); EOSINOPHILS % (AUTO) 2.8 % (1.0-6.0); HEMATOCRIT 39.4 % (41-53); HEMOGLOBIN 12.7 g/dL (13.5-17.5); LYMPHOCYTES # (AUTO) 0.9 K/uL (1.0-4.8); LYMPHOCYTES % (AUTO) 15.4 % (22.0-44.0); MEAN CORPUSCULAR HGB CONC 32.3 G/dL (31.0-37.0); MEAN CORPUSCULAR VOLUME 83 fL (80-100); MONOCYTES # (AUTO) 0.9 K/uL (0.1-1.0); MONOCYTES % (AUTO) 14.7 % (2.0-9.0); NEUTROPHILS # (AUTO) 3.9 K/uL (1.8-7.7); NEUTROPHILS % (AUTO) 66.9 % (40.0-70.0); PLATELET COUNT (AUTO) 252 K/uL (150-450); RED BLOOD CELL COUNT(AUTO) 4.73 MIL/uL (4.50-5.90); RED CELL DISTRIBUTION WIDTH 15.4 % (11.5-14.5)
[2020-02-26 05:56] LABS: ANION GAP 4 mmol/L (8-16); CALCIUM, TOTAL 8.9 mg/dL (8.8-10.5); CARBON DIOXIDE 30 mmol/L (22-29); CHLORIDE 109 mmol/L (98-107); CREATININE 0.91 mg/dL (0.60-1.30); GLOMERULAR FILTR. RATE CALC > 60 mL/min (>60); GLUCOSE,RANDOM 91 mg/dL (70-110); POTASSIUM 3.8 mmol/L (3.5-5.1); SODIUM SERUM 143 mmol/L (136-145); UREA NITROGEN, BLOOD 14 mg/dL (7-18)
[2020-02-26 06:01] LABS: ALANINE AMINOTRANSFERASE 22 U/L (12-78); ALBUMIN 3.6 g/dL (3.4-5.0); ALKALINE PHOSPHATASE 74 U/L (46-116); ASPARTATE AMINOTRANSFERASE 18 U/L (15-37); BILIRUBIN,TOTAL 0.4 mg/dL (0.1-1.0); TOTAL PROTEIN, SERUM 6.6 g/dL (6.4-8.2)
[2020-02-26 06:31] VITALS: BP 140/82
== END 2020-02-26 06:53 | disposition home or self-care (01) ==
LOC: EMS 05:09
DX: J44.9 Chronic obstructive pulmonary disease, unspecified (principal); I10 Essential (primary) hypertension; F17.210 Nicotine dependence, cigarettes, uncomplicated
CPT/HCPCS: 93005; 36415-L1; 36415-TC; 71045-TC

== ENCOUNTER 2020-04-03 09:33 | Emergency (ER) | payer OTHER ==
[~2020-04-03] VITALS: Ht 167.6 cm; Wt 72.7 kg
[2020-04-03] MEDS ORDERED: ALBUTEROL SULFATE 2.5 MG/0.5 ML NEB SOLUTION NEB ONE (10:15)
[2020-04-03] MEDS ORDERED: PredniSONE 20 MG TABLET PO ONE (10:15)
[2020-04-03] MEDS ORDERED: IPRATROPIUM BROMIDE 0.5 MG/2.5 ML NEB SOLUTION NEB ONE (10:15)
[2020-04-03 11:00] VITALS: BP 128/87
[2020-04-03] MEDS ORDERED: ALBUTEROL SULFATE HFA 90 MCG/PUFF 8 GM INHALER IH ONE (11:00)
== END 2020-04-03 11:30 | disposition home or self-care (01) ==
LOC: EMS 09:33
DX: J44.9 Chronic obstructive pulmonary disease, unspecified (principal); I10 Essential (primary) hypertension; Z87.891 Personal history of nicotine dependence
CPT/HCPCS: 94640; 99285; J7512; J3535

== ENCOUNTER 2020-05-03 23:19 | Inpatient (IN) | payer OTHER ==
[~2020-05-03] VITALS: Ht 180.3 cm; Wt 48.1 kg
[2020-05-04 00:01] LABS: BASOPHILS % (AUTO) 0.4 % (0.0-2.0); EOSINOPHILS % (AUTO) 1.8 % (1.0-6.0); HEMATOCRIT 40.4 % (41-53); HEMOGLOBIN 13.2 g/dL (13.5-17.5); LYMPHOCYTES # (AUTO) 0.7 K/uL (1.0-4.8); LYMPHOCYTES % (AUTO) 8.8 % (22.0-44.0); MEAN CORPUSCULAR HEMOGLOBIN 27.3 pg (26.0-34.0); MEAN CORPUSCULAR HGB CONC 32.6 G/dL (31.0-37.0); MEAN CORPUSCULAR VOLUME 84 fL (80-100); MONOCYTES # (AUTO) 0.9 K/uL (0.1-1.0); MONOCYTES % (AUTO) 12.1 % (2.0-9.0); NEUTROPHILS # (AUTO) 5.8 K/uL (1.8-7.7); NEUTROPHILS % (AUTO) 76.9 % (40.0-70.0); PLATELET COUNT (AUTO) 325 K/uL (150-450); RED BLOOD CELL COUNT(AUTO) 4.83 MIL/uL (4.50-5.90); RED CELL DISTRIBUTION WIDTH 15.1 % (11.5-14.5)
[2020-05-04 00:09] LABS: ANION GAP 3 mmol/L (8-16); CALCIUM, TOTAL 9.2 mg/dL (8.8-10.5); CARBON DIOXIDE 31 mmol/L (22-29); CHLORIDE 105 mmol/L (98-107); GLOMERULAR FILTR. RATE CALC > 60 mL/min (>60); GLUCOSE,RANDOM 107 mg/dL (70-110); POTASSIUM 4.4 mmol/L (3.5-5.1); SODIUM SERUM 139 mmol/L (136-145); UREA NITROGEN, BLOOD 13 mg/dL (7-18)
[2020-05-04 00:15] LABS: ALANINE AMINOTRANSFERASE 21 U/L (12-78); ALBUMIN 3.7 g/dL (3.4-5.0); ALKALINE PHOSPHATASE 85 U/L (46-116); ASPARTATE AMINOTRANSFERASE 16 U/L (15-37); BILIRUBIN,TOTAL 0.3 mg/dL (0.1-1.0); TOTAL PROTEIN, SERUM 7.2 g/dL (6.4-8.2)
[2020-05-04 00:19] LABS: B-TYPE NATRIURETIC PEPTIDE 9 pg/mL (0-100)
[2020-05-04] MEDS ORDERED: PredniSONE 20 MG TABLET PO ONE (00:45)
[2020-05-04] MEDS ORDERED: ALBUTEROL SULFATE 5 MG/ML 20 ML NEB SOLN [BULK] NEB ONE (00:45)
[2020-05-04] MEDS ORDERED: IPRATROPIUM BROMIDE 0.5 MG/2.5 ML NEB SOLUTION NEB ONE (00:45)
[2020-05-04] MEDS ORDERED: ASPIRIN 325 MG TABLET PO ONE (01:00)
[2020-05-04] MEDS ORDERED: MethylPREDNISolone SOD SUCC 125 MG/2 ML VIAL IVP ONE (01:00)
[2020-05-04 01:33] LABS: COVID AG,FIA SOURCE NASOPHARYNGEAL
[2020-05-04] MEDS ORDERED: ONDANSETRON HCL 4 MG/2 ML VIAL IVP PRN ×2 (03:30→10:00)
[2020-05-04] MEDS ORDERED: 0.9% SODIUM CHLORIDE 10 ML SYRINGE IVP PRN (03:30)
[2020-05-04] MEDS ORDERED: ACETAMINOPHEN 325 MG TABLET PO PRN ×2 (03:30→10:00)
[2020-05-04] MEDS ORDERED: DOXYCYCLINE HYCLATE 100 MG in DEXTROSE 5%-WATER 100 ML IV ONE (05:15)
[2020-05-04] MEDS ORDERED: CefTRIAXone 1 GM/DEXTROSE 50 ML IV ONE (05:15)
[2020-05-04 05:20] VITALS: BP 125/77
[2020-05-04] MEDS ORDERED: SODIUM CHLORIDE 0.9% 100 ML ONE (05:35)
[2020-05-04 07:31] LABS: AMPHET/METH SCREEN,URINE POSITIVE (NEGATIVE); BARBITURATE SCREEN, URINE NEGATIVE (NEGATIVE); BENZODIAZEPINES SCREEN,URINE NEGATIVE (NEGATIVE); CANNABINOID SCREEN,URINE NEGATIVE (NEGATIVE); COCAINE SCREEN,URINE NEGATIVE (NEGATIVE); METHADONE SCREEN, URINE NEGATIVE (NEGATIVE); OPIATE SCREEN,URINE NEGATIVE (NEGATIVE)
[2020-05-04 07:32] LABS: PHENCYCLIDINE SCREEN,URINE NEGATIVE (NEGATIVE)
[2020-05-04 08:20] VITALS: BP 130/77
[2020-05-04] MEDS ORDERED: ZOLPIDEM TARTRATE 5 MG TABLET PO PRN (10:00)
[2020-05-04] MEDS ORDERED: BISACODYL 10 MG RECTAL RECTAL SUPPOSITORY PR PRN (10:00)
[2020-05-04] MEDS ORDERED: NAPROXEN 500 MG TABLET PO PRN (10:00)
[2020-05-04] MEDS ORDERED: IPRATROPIUM BROMIDE 0.5 MG/2.5 ML NEB SOLUTION NEB PRN (10:00)
[2020-05-04] MEDS ORDERED: OxyCODONE HCL/ACETAMINOPHEN 5-325 MG TABLET PO PRN (10:00)
[2020-05-04] MEDS ORDERED: MAGNESIUM HYDROXIDE SUSPENSION 30 ML UDCUP PO PRN (10:00)
[2020-05-04] MEDS ORDERED: MORPHINE SULFATE 2 MG/ML SYRINGE IVP PRN (10:00)
[2020-05-04] MEDS ORDERED: ALBUTEROL SULFATE 2.5 MG/0.5 ML NEB SOLUTION NEB PRN (10:00)
[2020-05-04] MEDS: MethylPREDNISolone SOD SUCC 125 MG/2 ML VIAL IVP SCH ×2 (12:42→18:28)
[2020-05-04 15:43] VITALS: BP 129/101
[2020-05-04] MEDS: HEPARIN SODIUM,PORCINE 5,000 UNITS/ML VIAL SQ SCH (16:05)
[2020-05-04 16:22] VITALS: BP 145/92
[2020-05-04] MEDS: BuPROPion HCL 100 MG SR TABLET PO SCH (19:56)
[2020-05-04 21:18] VITALS: BP 143/88
[2020-05-05] MEDS: HEPARIN SODIUM,PORCINE 5,000 UNITS/ML VIAL SQ SCH ×4 (00:22→16:00)
[2020-05-05] MEDS: MethylPREDNISolone SOD SUCC 125 MG/2 ML VIAL IVP SCH ×3 (00:22→16:16)
[2020-05-05 01:12] VITALS: BP 138/95
[2020-05-05 05:27] VITALS: BP 140/78
[2020-05-05] MEDS: AZITHROMYCIN 500 MG/NS 250 ML IV SCH (05:45)
[2020-05-05 08:15] VITALS: BP 122/72
[2020-05-05] MEDS: CefTRIAXone 1 GM/DEXTROSE 50 ML IV SCH (08:38)
[2020-05-05] MEDS: PANTOPRAZOLE SODIUM 40 MG DR TABLET PO SCH (08:38)
[2020-05-05] MEDS: FAMOTIDINE 20 MG TABLET PO SCH (08:38)
[2020-05-05] MEDS: MONTELUKAST SODIUM 10 MG TABLET PO SCH (08:38)
[2020-05-05] MEDS ORDERED: PredniSONE 20 MG TABLET PO SCH (09:00)
[2020-05-05] MEDS ORDERED: FAMOTIDINE 20 MG TABLET PO SCH (09:00)
[2020-05-05 11:18] VITALS: BP 122/75
[2020-05-05] MEDS: IPRATROPIUM BROMIDE 0.5 MG/2.5 ML NEB SOLUTION NEB SCH ×6 (11:35→23:00)
[2020-05-05] MEDS: ALBUTEROL SULFATE 2.5 MG/0.5 ML NEB SOLUTION NEB SCH ×6 (11:35→23:00)
[2020-05-05] MEDS ORDERED: BECL10.6 PO (11:37)
[2020-05-05] MEDS ORDERED: ALBU8HFA IH (11:37)
[2020-05-05] MEDS ORDERED: BUPR-93 PO (11:37)
[2020-05-05] MEDS: BuPROPion HCL 100 MG SR TABLET PO SCH ×2 (12:23→21:46)
[2020-05-05 20:23] VITALS: BP 124/71
[2020-05-05 23:37] VITALS: BP 110/76
[2020-05-06] MEDS: HEPARIN SODIUM,PORCINE 5,000 UNITS/ML VIAL SQ SCH ×4 (00:21→23:22)
[2020-05-06] MEDS: MethylPREDNISolone SOD SUCC 125 MG/2 ML VIAL IVP SCH ×2 (00:27→09:26)
[2020-05-06] MEDS ORDERED: SODIUM CHLORIDE 0.9% 500 ML IV ONE (00:45)
[2020-05-06] MEDS: AZITHROMYCIN 500 MG/NS 250 ML IV SCH (03:45)
[2020-05-06 05:52] VITALS: BP 116/66
[2020-05-06] MEDS: CefTRIAXone 1 GM/DEXTROSE 50 ML IV SCH (06:01)
[2020-05-06] MEDS: ALBUTEROL SULFATE 2.5 MG/0.5 ML NEB SOLUTION NEB SCH (07:00)
[2020-05-06] MEDS: IPRATROPIUM BROMIDE 0.5 MG/2.5 ML NEB SOLUTION NEB SCH ×2 (07:00→11:00)
[2020-05-06 08:54] VITALS: BP 141/77
[2020-05-06] MEDS: FAMOTIDINE 20 MG TABLET PO SCH (09:26)
[2020-05-06] MEDS: MONTELUKAST SODIUM 10 MG TABLET PO SCH (09:26)
[2020-05-06] MEDS: PANTOPRAZOLE SODIUM 40 MG DR TABLET PO SCH (09:26)
[2020-05-06] MEDS: BuPROPion HCL 100 MG SR TABLET PO SCH ×2 (09:26→20:32)
[2020-05-06] MEDS: MethylPREDNISolone SOD SUCC 40 MG/ML VIAL IVP SCH ×2 (15:15→23:22)
[2020-05-06 15:46] VITALS: BP 124/58
[2020-05-06 20:43] VITALS: BP 148/78
[2020-05-06] MEDS: ALBUTEROL SULFATE HFA 90 MCG/PUFF 8 GM INHALER IH PRN (21:00)
[2020-05-07 00:16] VITALS: BP 130/66
[2020-05-07] MEDS: AZITHROMYCIN 500 MG/NS 250 ML IV SCH (03:40)
[2020-05-07 04:33] VITALS: BP 143/78
[2020-05-07] MEDS: CefTRIAXone 1 GM/DEXTROSE 50 ML IV SCH (05:33)
[2020-05-07 09:04] VITALS: BP 152/80
[2020-05-07] MEDS: ALBUTEROL SULFATE 2.5 MG/0.5 ML NEB SOLUTION NEB SCH ×2 (09:20→09:34)
[2020-05-07] MEDS: BuPROPion HCL 100 MG SR TABLET PO SCH (09:21)
[2020-05-07] MEDS: HEPARIN SODIUM,PORCINE 5,000 UNITS/ML VIAL SQ SCH (09:21)
[2020-05-07] MEDS: MONTELUKAST SODIUM 10 MG TABLET PO SCH (09:21)
[2020-05-07] MEDS: PANTOPRAZOLE SODIUM 40 MG DR TABLET PO SCH (09:21)
[2020-05-07] MEDS: FAMOTIDINE 20 MG TABLET PO SCH (09:21)
[2020-05-07] MEDS: MethylPREDNISolone SOD SUCC 40 MG/ML VIAL IVP SCH (09:21)
[2020-05-07] MEDS: IPRATROPIUM BROMIDE 0.5 MG/2.5 ML NEB SOLUTION NEB SCH (09:33)
[2020-05-07] MEDS ORDERED: OMEP10 PO (11:31)
[2020-05-07] MEDS ORDERED: LEVO750T68 PO (11:31)
[2020-05-07] MEDS ORDERED: PRED-284 PO (11:41)
== END 2020-05-07 12:45 | disposition home or self-care (01) | DRG 139 ==
LOC: EMS 23:19 → 5N 05-04 03:20 → 6N 05-05 17:39
PROVIDERS: ADMIT Hospitalist; ATTEND Hospitalist
DX: J18.9 Pneumonia, unspecified organism (principal); J44.1 Chronic obstructive pulmonary disease with (acute) exacerbation; J44.0 Chronic obstructive pulmonary disease with (acute) lower respiratory infection; Z20.828 Contact with and (suspected) exposure to other viral communicable diseases; K21.9 Gastro-esophageal reflux disease without esophagitis; Z68.1 Body mass index [BMI] 19.9 or less, adult; E44.0 Moderate protein-calorie malnutrition
CPT/HCPCS: 87426; 93005; 93306; J0456; J0696; J1644; J2405; J2920; J2930; J3490; J7040; J7050; J7060; 36415-L1; 36415-TC; 71045-TC

== ENCOUNTER 2020-06-06 23:09 | Emergency (ER) | payer MEDICARE, OTHER ==
[~2020-06-06] VITALS: Ht 180.3 cm; Wt 54.5 kg
[~2020-06-06 23:09] MED LIST changes: +BECL10.6 PO; +BUPR-93 PO; -BUPR100SR PO; +LEVO750T68 PO; +OMEP10 PO; +PRED-284 PO; -PRED10 PO
[2020-06-07] MEDS ORDERED: ALBUTEROL SULFATE HFA 90 MCG/PUFF 8 GM INHALER IH ONE
[2020-06-07 06:14] VITALS: BP 144/93
== END 2020-06-07 06:37 | disposition home or self-care (01) ==
LOC: EMS 23:13
DX: J44.9 Chronic obstructive pulmonary disease, unspecified (principal); I10 Essential (primary) hypertension; Z87.891 Personal history of nicotine dependence
CPT/HCPCS: 94640; J3535

== ENCOUNTER 2020-06-24 04:13 | Emergency (ER) | payer MEDICARE, OTHER ==
[~2020-06-24] VITALS: Ht 180.3 cm; Wt 74.5 kg
[2020-06-24] MEDS ORDERED: PredniSONE 20 MG TABLET PO ONE (04:30)
[2020-06-24] MEDS ORDERED: ALBUTEROL SULFATE 5 MG/ML 20 ML NEB SOLN [BULK] NEB ONE (04:30)
[2020-06-24 04:57] LABS: BASOPHILS % (AUTO) 0.6 % (0.0-2.0); EOSINOPHILS % (AUTO) 1.1 % (1.0-6.0); HEMATOCRIT 41.1 % (41-53); HEMOGLOBIN 13.1 g/dL (13.5-17.5); LYMPHOCYTES # (AUTO) 0.6 K/uL (1.0-4.8); LYMPHOCYTES % (AUTO) 7.5 % (22.0-44.0); MEAN CORPUSCULAR VOLUME 85 fL (80-100); MONOCYTES # (AUTO) 0.8 K/uL (0.1-1.0); MONOCYTES % (AUTO) 9.9 % (2.0-9.0); NEUTROPHILS # (AUTO) 6.4 K/uL (1.8-7.7); NEUTROPHILS % (AUTO) 80.9 % (40.0-70.0); PLATELET COUNT (AUTO) 261 K/uL (150-450); RED BLOOD CELL COUNT(AUTO) 4.87 MIL/uL (4.50-5.90); RED CELL DISTRIBUTION WIDTH 15.6 % (11.5-14.5)
[2020-06-24 05:01] LABS: ANION GAP 7 mmol/L (8-16); CALCIUM, TOTAL 9.1 mg/dL (8.8-10.5); CARBON DIOXIDE 30 mmol/L (22-29); CHLORIDE 102 mmol/L (98-107); CREATININE 0.63 mg/dL (0.60-1.30); GLOMERULAR FILTR. RATE CALC > 60 mL/min (>60); GLUCOSE,RANDOM 95 mg/dL (70-110); POTASSIUM 4.3 mmol/L (3.5-5.1); SODIUM SERUM 139 mmol/L (136-145); UREA NITROGEN, BLOOD 10 mg/dL (7-18)
[2020-06-24 05:07] LABS: ALANINE AMINOTRANSFERASE 25 U/L (12-78); ALBUMIN 3.9 g/dL (3.4-5.0); ALKALINE PHOSPHATASE 79 U/L (46-116); ASPARTATE AMINOTRANSFERASE 21 U/L (15-37); BILIRUBIN,TOTAL 0.3 mg/dL (0.1-1.0); TOTAL PROTEIN, SERUM 7.3 g/dL (6.4-8.2)
[2020-06-24 05:45] LABS: COVID AG,FIA SOURCE NASOPHARYNGEAL
[2020-06-24] MEDS ORDERED: 0.9% SODIUM CHLORIDE 5 ML NEB SOLUTION NEB ONE (05:46)
[2020-06-24 07:20] VITALS: BP 164/82
== END 2020-06-24 07:30 | disposition home or self-care (01) ==
LOC: EMS 04:14
DX: J44.9 Chronic obstructive pulmonary disease, unspecified (principal); I10 Essential (primary) hypertension; Z87.891 Personal history of nicotine dependence; Z79.899 Other long term (current) drug therapy; Z20.822 Contact with and (suspected) exposure to COVID-19
CPT/HCPCS: 36415; 71045; 80053; 84484; 85025; 87426; 93005; 94640; 99291; J7512; U0003; J7611

== ENCOUNTER → 2020-07-01 | Emergency (ER) | payer MEDICARE, OTHER ==
[~2020-07-01] VITALS: Ht 180.3 cm; Wt 63.6 kg
[~2020-07-01] MED LIST changes: +ALBUTEROL SULFATE HFA 90 MCG/PUFF 8 GM INHALER IH ONE
[2020-07-01 01:06] VITALS: BP 142/91
== END | disposition home or self-care (01) ==
LOC: EMS 00:36
DX: J44.9 Chronic obstructive pulmonary disease, unspecified (principal); I10 Essential (primary) hypertension; Z87.891 Personal history of nicotine dependence; Z79.899 Other long term (current) drug therapy
CPT/HCPCS: 94640; 99283; J3535

== ENCOUNTER 2020-07-15 01:45 | Emergency (ER) | payer MEDICARE, OTHER ==
[~2020-07-15] VITALS: Ht 180.3 cm; Wt 66.4 kg
[~2020-07-15 01:45] MED LIST changes: -ALBUTEROL SULFATE HFA 90 MCG/PUFF 8 GM INHALER IH ONE
[2020-07-15] MEDS ORDERED: ALBUTEROL SULFATE HFA 90 MCG/PUFF 8 GM INHALER IH ONE (02:45)
[2020-07-15 03:16] VITALS: BP 130/83
== END 2020-07-15 03:20 | disposition home or self-care (01) ==
LOC: EMS 01:46
DX: J44.9 Chronic obstructive pulmonary disease, unspecified (principal); I10 Essential (primary) hypertension; Z87.891 Personal history of nicotine dependence; Z79.899 Other long term (current) drug therapy
CPT/HCPCS: 94640; 99283; J3535

== ENCOUNTER 2020-08-15 03:44 | Emergency (ER) | payer MEDICARE, OTHER ==
[~2020-08-15] VITALS: Ht 180.3 cm; Wt 64.5 kg
[2020-08-15] MEDS ORDERED: ALBUTEROL SULFATE HFA 90 MCG/PUFF 8 GM INHALER IH ONE (04:00)
[2020-08-15 04:27] LABS: BASOPHILS % (AUTO) 0.4 % (0.0-2.0); EOSINOPHILS % (AUTO) 2.8 % (1.0-6.0); HEMATOCRIT 40.7 % (41-53); LYMPHOCYTES # (AUTO) 0.7 K/uL (1.0-4.8); LYMPHOCYTES % (AUTO) 6.9 % (22.0-44.0); MEAN CORPUSCULAR HEMOGLOBIN 26.7 pg (26.0-34.0); MEAN CORPUSCULAR VOLUME 84 fL (80-100); MONOCYTES # (AUTO) 0.8 K/uL (0.1-1.0); MONOCYTES % (AUTO) 7.9 % (2.0-9.0); NEUTROPHILS # (AUTO) 8.4 K/uL (1.8-7.7); PLATELET COUNT (AUTO) 272 K/uL (150-450); RED BLOOD CELL COUNT(AUTO) 4.88 MIL/uL (4.50-5.90); RED CELL DISTRIBUTION WIDTH 14.8 % (11.5-14.5)
[2020-08-15 04:54] LABS: ANION GAP 8 mmol/L (8-16); CALCIUM, TOTAL 8.6 mg/dL (8.8-10.5); CARBON DIOXIDE 29 mmol/L (22-29); CHLORIDE 102 mmol/L (98-107); CREATININE 0.85 mg/dL (0.60-1.30); GLOMERULAR FILTR. RATE CALC > 60 mL/min (>60); GLUCOSE,RANDOM 93 mg/dL (70-110); POTASSIUM 4.1 mmol/L (3.5-5.1); SODIUM SERUM 139 mmol/L (136-145); UREA NITROGEN, BLOOD 21 mg/dL (7-18)
[2020-08-15 04:58] LABS: APPEARANCE,URINE CLEAR (CLEAR); BILIRUBIN,URINE NEGATIVE (NEGATIVE); GLUCOSE, URINE (UA) NEGATIVE (NEGATIVE); KETONES,URINE NEGATIVE (NEGATIVE); LEUKOCYTE ESTERASE ,URINE NEGATIVE (NEGATIVE); NITRATE,URINE NEGATIVE (NEGATIVE); OCCULT BLOOD,URINE NEGATIVE (NEGATIVE); PH,URINE 5.5 (5.0-8.0); PROTEIN,URINE NEGATIVE (NEGATIVE); UROBILINOGEN,URINE 0.2 mg/dL (<=1.0)
[2020-08-15 05:00] VITALS: BP 150/98
[2020-08-15 05:00] LABS: ALANINE AMINOTRANSFERASE 22 U/L (12-78); ALBUMIN 3.5 g/dL (3.4-5.0); ALKALINE PHOSPHATASE 73 U/L (46-116); ASPARTATE AMINOTRANSFERASE 11 U/L (15-37); BILIRUBIN,TOTAL 0.2 mg/dL (0.1-1.0); CREATINE KINASE, TOTAL ONLY 53 U/L (39-308); TOTAL PROTEIN, SERUM 6.9 g/dL (6.4-8.2)
[2020-08-15 05:04] LABS: B-TYPE NATRIURETIC PEPTIDE 21 pg/mL (0-100)
== END 2020-08-15 05:30 | disposition home or self-care (01) ==
LOC: EMS 03:48
DX: R06.02 Shortness of breath (principal); R05 Cough; Z87.891 Personal history of nicotine dependence; I10 Essential (primary) hypertension
CPT/HCPCS: 93005; 94640; 99285; J3535; 36415-L1; 36415-TC; 71045-TC; 81003-TC

== ENCOUNTER 2020-08-31 06:21 | Day surgery (SDC) | payer MEDICARE, OTHER ==
[2020-08-28 15:42] LABS: COVID AG,FIA SOURCE NASOPHARYNGEAL
[~2020-08-31] VITALS: Ht 180.3 cm; Wt 59.1 kg
[~2020-08-31 06:21] MED LIST changes: +SODIUM CHLORIDE 0.9% 1,000 ML ONE
[2020-08-31] MEDS ORDERED: SODIUM CHLORIDE 0.9% 1,000 ML IV ONE (07:00)
[2020-08-31] MEDS ORDERED: MIDAZOLAM HCL 2 MG/2 ML VIAL ONE (07:23)
[2020-08-31] MEDS ORDERED: FentaNYL CITRATE PF 100 MCG/2 ML VIAL ONE (07:23)
[2020-08-31] MEDS ORDERED: MethylPREDNISolone SOD SUCC 125 MG/2 ML VIAL IVP ONE (09:00)
[2020-08-31] MEDS ORDERED: MethylPREDNISolone SOD SUCC 125 MG/2 ML VIAL ONE (10:00)
[2020-08-31] MEDS ORDERED: BENZOCAINE 20% 50 MCG/SPRAY 57 GM ONE (12:54)
[2020-08-31] MEDS ORDERED: LIDOCAINE 2% 30 ML JELLY ONE (12:54)
[2020-08-31] MEDS ORDERED: ALBUTEROL SULFATE 2.5 MG/0.5 ML NEB SOLUTION NEB ONE (12:54)
[2020-08-31] MEDS ORDERED: OXYGEN THERAPY IH SCH (20:00)
== END 2020-08-31 11:30 | disposition home or self-care (01) ==
LOC: SURGERY 06:21
PROVIDERS: ATTEND Internal Medicine Critical Care Medicine
DX: J38.4 Edema of larynx (principal); B37.0 Candidal stomatitis; Z98.890 Other specified postprocedural states; J45.909 Unspecified asthma, uncomplicated; J44.9 Chronic obstructive pulmonary disease, unspecified; I10 Essential (primary) hypertension
CPT/HCPCS: 31623; 31624; 36415; 71045; 84484; 87015; 87070; 87101; 87205; 87206; 87220; 87426; 88108; 88184; 88185; 88312; 93005; C9803; J2250; J2930; J3010; J7030; J7613

== ENCOUNTER 2020-09-09 10:19 | Emergency (ER) | payer MEDICARE, OTHER ==
[~2020-09-09] VITALS: Ht 177.8 cm; Wt 65.9 kg
[~2020-09-09 10:19] MED LIST changes: -SODIUM CHLORIDE 0.9% 1,000 ML ONE
[2020-09-09] MEDS ORDERED: MethylPREDNISolone SOD SUCC 125 MG/2 ML VIAL IVP ONE (11:00)
[2020-09-09 11:10] LABS: BASOPHILS % (AUTO) 0.4 % (0.0-2.0); EOSINOPHILS % (AUTO) 0.4 % (1.0-6.0); HEMATOCRIT 42.8 % (41-53); HEMOGLOBIN 13.8 g/dL (13.5-17.5); LYMPHOCYTES # (AUTO) 0.6 K/uL (1.0-4.8); LYMPHOCYTES % (AUTO) 6.9 % (22.0-44.0); MEAN CORPUSCULAR HEMOGLOBIN 26.6 pg (26.0-34.0); MEAN CORPUSCULAR HGB CONC 32.1 G/dL (31.0-37.0); MEAN CORPUSCULAR VOLUME 83 fL (80-100); MONOCYTES # (AUTO) 0.3 K/uL (0.1-1.0); MONOCYTES % (AUTO) 3.8 % (2.0-9.0); NEUTROPHILS # (AUTO) 7.9 K/uL (1.8-7.7); PLATELET COUNT (AUTO) 310 K/uL (150-450); RED BLOOD CELL COUNT(AUTO) 5.17 MIL/uL (4.50-5.90)
[2020-09-09 11:12] LABS: NEUTROPHILS % (AUTO) 88.5 % (40.0-70.0)
[2020-09-09 11:31] LABS: ANION GAP 4 mmol/L (8-16); CARBON DIOXIDE 31 mmol/L (22-29); CHLORIDE 108 mmol/L (98-107); CREATININE 0.84 mg/dL (0.60-1.30); GLOMERULAR FILTR. RATE CALC > 60 mL/min (>60); GLUCOSE,RANDOM 114 mg/dL (70-110); POTASSIUM 4.2 mmol/L (3.5-5.1); SODIUM SERUM 143 mmol/L (136-145); UREA NITROGEN, BLOOD 23 mg/dL (7-18)
[2020-09-09 11:44] LABS: ALANINE AMINOTRANSFERASE 25 U/L (12-78); ALBUMIN 4.2 g/dL (3.4-5.0); ALKALINE PHOSPHATASE 72 U/L (46-116); ASPARTATE AMINOTRANSFERASE 14 U/L (15-37); BILIRUBIN,TOTAL 0.4 mg/dL (0.1-1.0); TOTAL PROTEIN, SERUM 7.8 g/dL (6.4-8.2)
[2020-09-09 12:23] LABS: COVID AG,FIA SOURCE NASOPHARYNGEAL
[2020-09-09 12:34] VITALS: BP 149/86
== END 2020-09-09 13:03 | disposition home or self-care (01) ==
LOC: EMS 10:26
DX: J44.9 Chronic obstructive pulmonary disease, unspecified (principal); I10 Essential (primary) hypertension; Z20.822 Contact with and (suspected) exposure to COVID-19; J45.909 Unspecified asthma, uncomplicated; Z87.891 Personal history of nicotine dependence
CPT/HCPCS: 36415; 71045; 80053; 85025; 87426; 96374; 99284; J2930

== ENCOUNTER 2020-10-26 08:51 | Emergency (ER) | payer MEDICARE, OTHER ==
[~2020-10-26] VITALS: Ht 180.3 cm; Wt 63.6 kg
[2020-10-26] MEDS ORDERED: ALBUTEROL SULFATE HFA 90 MCG/PUFF 8 GM INHALER IH ONE (09:15)
[2020-10-26 10:17] VITALS: BP 122/98
== END 2020-10-26 10:26 | disposition home or self-care (01) ==
LOC: EMS 08:54
DX: J45.901 Unspecified asthma with (acute) exacerbation (principal); I10 Essential (primary) hypertension; F17.210 Nicotine dependence, cigarettes, uncomplicated
CPT/HCPCS: 94640; 99284; J3535; Z7502

== ENCOUNTER 2020-10-30 04:51 | Emergency (ER) | payer MEDICARE, OTHER ==
[~2020-10-30] VITALS: Ht 180.3 cm; Wt 63.6 kg
[2020-10-30 05:24] VITALS: BP 150/92
== END 2020-10-30 05:53 | disposition home or self-care (01) ==
LOC: EMS 04:52
DX: F14.10 Cocaine abuse, uncomplicated (principal); F17.210 Nicotine dependence, cigarettes, uncomplicated; J45.909 Unspecified asthma, uncomplicated; I10 Essential (primary) hypertension
CPT/HCPCS: 99283

== ENCOUNTER 2020-11-10 01:41 | Emergency (ER) | payer MEDICARE, OTHER ==
[~2020-11-10] VITALS: Ht 180.3 cm; Wt 63.6 kg
[2020-11-10] MEDS ORDERED: ALBUTEROL SULFATE HFA 90 MCG/PUFF 8 GM INHALER IH ONE (02:45)
[2020-11-10 04:21] VITALS: BP 135/78
== END 2020-11-10 04:21 | disposition home or self-care (01) ==
LOC: EMS 01:42
DX: J44.9 Chronic obstructive pulmonary disease, unspecified (principal); I10 Essential (primary) hypertension; F17.210 Nicotine dependence, cigarettes, uncomplicated
CPT/HCPCS: 94640; 99283; J3535